=== PATIENT | male | born 1940 | race Caucasian/White ===

== ENCOUNTER 2020-08-15 14:44 | Emergency (ER) | payer MEDICARE, OTHER ==
[2020-08-15 15:08] LABS: BASOPHILS % (AUTO) 0.4 %; EOSINOPHILS # (AUTO) 0.1 10^3/uL (0.0-0.7); EOSINOPHILS % (AUTO) 0.9 %; HCT - HEMATOCRIT 45.9 % (42.0-52.0); HGB - HEMOGLOBIN 16.4 g/dL (14.0-18.0); LYMPHOCYTES # (AUTO) 2.2 10^3/uL (1.5-3.5); LYMPHOCYTES % (AUTO) 26.9 %; MEAN CORPUSCULAR HEMOGLOBIN 31.7 pg (27.0-31.0); MEAN CORPUSCULAR HGB CONC 35.7 g/dL (32.0-36.0); MEAN CORPUSCULAR VOLUME 88.8 fL (80.0-94.0); MEAN PLATELET VOLUME 10.4 fL (7.4-11.4); MONOCYTES # (AUTO) 0.8 10^3/uL (0.0-1.0); MONOCYTES % (AUTO) 9.9 %; NEUTROPHILS # (AUTO) 4.9 10^3/uL (1.5-6.6); NEUTROPHILS % (AUTO) 61.6 %; PLT - PLATELET COUNT 147 10^3/uL (130-450); RED BLOOD COUNT 5.17 10^6/uL (4.70-6.10); RED CELL DISTRIBUTION WIDTH 12.5 % (12.0-15.0)
[2020-08-15 15:17] LABS: BILIRUBIN,URINE NEGATIVE (NEGATIVE); GLUCOSE, URINE (UA) NEGATIVE (NEGATIVE); KETONES,URINE (UA) NEGATIVE (NEGATIVE); LEUKOCYTE ESTERASE, URINE NEGATIVE (NEGATIVE); NITRITE,URINE NEGATIVE (NEGATIVE); OCCULT BLOOD,URINE LARGE (NEGATIVE); PH,URINE 5.5 PH (5.0-7.5); PROTEIN,URINE NEGATIVE (NEGATIVE); UROBILINOGEN,URINE 0.2 (NORMAL) E.U./dL (NORMAL)
[2020-08-15 15:20] LABS: BACTERIA,URINE Rare /HPF (None Seen); CLARITY,URINE CLEAR (CLEAR); SQUAMOUS EPITHELIAL CELL,UR FEW Squamous (<= Few); WBC,URINE 0-3 /HPF (0-3)
--- NOTE | 2020-08-15 15:21 | ED Physician Documentation ---
History of Present Illness - Stated complaint Stated Complaint: LOW BACK PX/MALE - Chief complaint Chief Complaint: Abd Pain - Additonal information Additional information: 79-year-old male presents to the emergency department for evaluation of right mid back pain and flank pain that began a few hours before arrival. He describes it as a constant unrelenting ache. He states he has had similar in the past with nephrolithiasis. However his last episode was about 10 years ago. Denies any history of surgical interventions related to nephro or ureterolithiasis. Said no fevers, nausea vomiting. Denies dysuria or hematuria. Denies chest pain shortness of air. Past medical history includes Parkinson's disorder, hypertension and hyperlipidemia Meds: Carbidopa, levodopa, atorvastatin, hydrochlorothiazide Review of Systems Constitutional: denies: Fever, Chills Eyes: reports: Reviewed and negative Ears: reports: Reviewed and negative Nose: reports: Reviewed and negative Throat: reports: Reviewed and negative Cardiac: reports: Reviewed and negative Respiratory: reports: Reviewed and negative GI: reports: Abdominal Pain. denies: Nausea, Vomiting : denies: Dysuria, Frequency, Hesitancy Skin: reports: Reviewed and negative PD PAST MEDICAL HISTORY - Present Medications Home Medications: Ambulatory Orders Medication Instructions Recorded Confirmed Atorvastatin Calcium 1 tab PO DAILY 08/15/20 08/15/20 Carbidopa/Levodopa/Entacapone 1 tab PO TID 08/15/20 08/15/20 [Carbidopa-Levodopa 100 mg-Enta] HYDROcod/ACETAM 5/325 [[place] 5/325] 1 - 2 tablet PO BID #14 tablet 08/15/20 Omeprazole [PriLOSEC] 1 tab PO DAILY 08/15/20 08/15/20 Tamsulosin [Flomax] 0.4 mg PO DAILY #30 08/15/20 hydroCHLOROthiazide [Hydrodiuril] 1 tab PO DAILY 08/15/20 08/15/20 - Allergies Allergies/Adverse Reactions: Allergies Allergy/AdvReac Type Severity Reaction Status Date / Time No Known Drug Allergies Allergy Verified 08/15/20 14:53 PD ED PE EXPANDED - General General: Alert, No acute distress - Cardiac Cardiac: Regular Rate, Radial strong equal, Pedal strong equal, Cap refill < 2 sec. No: Murmur Present - Respiratory Respiratory: Clear to ausultation apolonia. No: Distress, Labored - Abdomen Abdomen: Normal Bowel sounds, Tender to palpation (Mild right flank tenderness and very low CVA tenderness). No: Rebound, Guarding - Derm Derm: Normal color, Warm and dry. No: Rash - Neuro Neuro: Alert and Oriented X 3, CNII-XII intact, Other (Resting tremor) - GCS Eye Opening: Spontaneous Results - Vitals Vitals: Vital Signs - 24 hr 08/15/20 14:50 Temperature 36.8 C Heart Rate 92 Respiratory 15 Rate Blood Pressure 164/74 H O2 Saturation 99 Oxygen O2 Source Room air - Labs Labs: Laboratory Tests 08/15/20 08/15/20 08/15/20 15:00 15:00 15:12 WBC 8.0 RBC 5.17 Hgb 16.4 Hct 45.9 MCV 88.8 MCH 31.7 H MCHC 35.7 RDW 12.5 Plt Count 147 MPV 10.4 Neut # (Auto) 4.9 Lymph # (Auto) 2.2 Davidson # (Auto) 0.8 Eos # (Auto) 0.1 Baso # (Auto) 0.0 Absolute Nucleated RBC 0.00 Nucleated RBC % 0.0 Sodium 141 Potassium 3.6 Chloride 102 Carbon Dioxide 27 Anion Gap 12.0 BUN 18 Creatinine 1.1 Estimated GFR (MDRD) 64 L Glucose 121 H Calcium 9.3 Total Bilirubin 0.9 AST 19 ALT < 10 L Alkaline Phosphatase 67 Total Protein 7.2 Albumin 4.5 Globulin 2.7 Albumin/Globulin Ratio 1.7 Lipase 29 Urine Color YELLOW Urine Clarity CLEAR Urine pH 5.5 Ur Specific [place] 1.025 Urine Protein NEGATIVE Urine Glucose (UA) NEGATIVE Urine Ketones NEGATIVE Urine Occult Blood LARGE H Urine Nitrite NEGATIVE Urine Bilirubin NEGATIVE Urine Urobilinogen 0.2 (NORMAL) Ur Leukocyte Esterase NEGATIVE Urine RBC 11-25 H Urine WBC 0-3 Ur Squamous Epith Cells FEW Squamous Urine Bacteria Rare Ur Microscopic Review INDICATED Urine Culture Comments NOT INDICATED - Rads (name of study) CT abd/pel Radiology: Final report received (7 mm obstructing stone seen within the right proximal ureter with associated right-sided hydroureter hydronephrosis and perinephric fat stranding. No nonobstructing stones are seen. Moderate amount of stool seen within the colon please correlate with clinical constipation.) PD MEDICAL DECISION MAKING - ED course Complexity details: reviewed results, re-evaluated patient, d/w patient ED course: -year-old male presents emergency department for evaluation of acute right flank pain that began just a few hours prior to arrival. He does have a history of nephrolithiasis. Screening labs show no significant leukocytosis. Preserved renal function. No evidence of infection in his urine. CT of the abdomen does show a 7 mm proximal ureter stone with obstruction hydroureter and hydronephrosis. These findings were discussed with the patient his at the bedside. He will be started on Flomax as well as a limited amount of hydrocodone for severe pain. I recommended a little bit of NSAID medication at home as well for pain control. Patient receives his neurology care at the [facility] and I have advised him to follow-up with urology there as well. Emergent return precautions were discussed for worsening pain, fevers uncontrolled vomiting. I am prescribing a short course of short-acting opioid pain medication for this patient. I have reviewed the patients [employer] and no concerning findings were noted. I have discussed that the opioids are for short term therapy only, and will not be refilled from the ED. Departure - Departure Disposition: Home, Self Care Clinical Impression: Ureteral stone with hydronephrosis Condition: Stable Record reviewed to determine appropriate education?: Yes Follow-Up: Bradley Nelson MD [Primary Care Provider] - [facility] [Provider Group] [facility] [Provider Group] Prescriptions: Tamsulosin [Flomax] 0.4 mg PO DAILY #30 HYDROcod/ACETAM 5/325 [[place] 5/325] 1 - 2 tablet PO BID #14 tablet Comments: Dillon leonardo were seen in the emergency department today for right-sided flank pain. The CT scan shows that you have a 7 mm obstructing stone within the right proximal ureter as well as some swelling of the ureter and the kidney. There is no infection in your urine. It is very important that you contact the urology clinic tomorrow to arrange follow-up to be seen within the next week. I have prescribed a medication called Flomax that can help dilate the ureter to allow the stone to pass. Take this once a day as prescribed. Be careful when walking with it it may make you somewhat dizzy. I have also prescribed a limited amount of hydrocodone for severe pain only. It is okay for you to take 600 mg of ibuprofen with food 2 or 3 times a day for the flank pain. If your pain is not well controlled, you have fevers vomiting worsening symptoms then please return to the ER. You may then need to be transferred to a hospital with urology services. I am prescribing a short course of narcotic pain medication for you. These are potentially dangerous and addictive medications that should be used carefully. These medications may constipate you. Take an [id number] stool softener (docusate) twice daily with plenty of water while taking these medications. If you go 24 hours without a bowel movement, take [id number] miralax, per package instructions. Do not drink or drive while taking these medications. If you received narcotic or sedating medications while in the emergency departm ent, do not drive for 24 hours. Store this medication in a safe, secure place and out of reach of children. It is a violation of federal law to give or sell this medication to another person or to use in a manner other than prescribed. The ED will not refill narcotic prescriptions, including prescriptions lost or stolen. To dispose of unwanted medications: 1. [facility] at [address] in [place] has a medication drop box. They accept prescription medications (in pill form) Sunday through Sunday 9:00 a.m. to 5:00 p.m. 2. [facility] [employer] [facility] accepts prescription medications (in pill form only) for disposal year round. Call for more information. 3. Contact the [facility] for the next [facility] sponsored prescription drug collection event. , [phone], or [phone]; Note that many narcotic pain relievers also contain Tylenol/acetaminophen. Please ensure that your total dose of acetaminophen from all sources does not exceed 3 g (3000 mg) per day.
--- OUTSIDE RECORDS SUMMARY | 2020-08-15 15:24 | EXTERNAL MEDICAL SUMMARY RPT | Continuity of Care Document ---
:1940 Demographics Phone Unavailable Preferred Language Unknown Marital Status Unknown Adventist Affiliation Unknown Race Unknown Ethnic Group Unknown Author Organization [facility] Address [address] [place] [address] Phone Allergies Encounters Medications Problems Results
[2020-08-15] MEDS ORDERED: IOVERSOL 320 100 ML VIAL IVP ONE ×2 (15:25→15:46)
[2020-08-15 15:29] LABS: ALBUMIN 4.5 g/dL (3.2-5.5); ALBUMIN/GLOBULIN RATIO 1.7 (1.0-2.2); ALKALINE PHOSPHATASE 67 IU/L (42-121); ALT ALANINE AMINOTRANSFERASE < 10 IU/L (10-60); AST ASPARTATE AMINOTRANSFERASE 19 IU/L (10-42); BILIRUBIN,TOTAL 0.9 mg/dL (0.2-1.0); BUN - BLOOD UREA NITROGEN 18 mg/dL (6-20); CALCIUM 9.3 mg/dL (8.5-10.3); CARBON DIOXIDE - CO2 27 mmol/L (21-32); CHLORIDE 102 mmol/L (101-111); CREATININE 1.1 mg/dL (0.6-1.2); GFR - MDRD 64 (>89); GLUCOSE 121 mg/dL (70-100); LIPASE 29 U/L (22-51); POTASSIUM 3.6 mmol/L (3.5-5.0); SODIUM 141 mmol/L (135-145); TOTAL PROTEIN 7.2 g/dL (6.7-8.2)
--- NOTE | 2020-08-15 16:22 | CT Report ---
PROCEDURE: Abdomen/Pelvis W INDICATIONS: right low back pain; ? renal colic CONTRAST: IV CONTRAST: Optiray 320 ml: 100 PO CONTRAST: *NO PO CONTRAST TECHNIQUE: After the administration of IV contrast, 5 mm thick sections acquired from the diaphragms to the symp hysis. 5 mm thick coronal and sagittal reformats were acquired. For radiation dose reduction, the f ollowing was used: automated exposure control, adjustment of mA and/or kV according to patient size. COMPARISON: Correlation is made with reports only from prior CT examinations dated 11/08/2011 and 10/27 FINDINGS: Image quality: Excellent. ABDOMEN: Lung bases: Lung bases are clear. Heart size is normal. Solid organs: Liver and spleen are normal in size. Subcentimeter low-density liver lesions are seen. En. Spleen demonstrates normal size and demonstrates no focal lesions An accessory splenule is incid entally noted along the hilum of the primary spleen. Gallbladder demonstrates layering sludge or sm all stones Biliary system is non dilated. Pancreas enhances normally. No adrenal nodules. There is an obstructing stone seen within the right proximal ureter, as on series 3 image 38 and on s eries 6 image 29 that measures up to 7 mm. There is associated moderate right-sided hydroureter and h ydronephrosis. A mild degree of right perinephric fat stranding can be seen. The kidneys demonstrate normal size. No nonobstructing stones are detected. No left-sided hydronephro sis is seen. Peritoneum and bowel: Bowel loops demonstrate normal wall thickness and caliber. No free fluid or a ir. A normal appendix is incidentally noted. A moderate amount of stool can be seen within the colo n. Nodes and vessels: No retroperitoneal or mesenteric adenopathy by size criteria. Aorta and inferior vena cava are normal in size. Atherosclerotic calcification is seen. Miscellaneous: No ventral hernias. PELVIS: Genitourinary: Bladder wall thickness is normal. Miscellaneous: No inguinal hernias or adenopathy. Bones: No suspicious bony lesions. No vertebral body compression fractures. Mild dextroconvex scol iotic curvature is seen. Degenerative changes are seen throughout, which are worst at L2-L3 and L5-S1 . IMPRESSION: 7 mm obstructing stone seen within the right proximal ureter, with associated right-side d hydroureter, hydronephrosis, and perinephric fat stranding. No nonobstructing stones are seen. There is a moderate amount of stool seen within the colon. Please correlate with clinical constipatio n. Incidental note is made of: Presumed liver cysts Layering sludge or small stones seen within the gallbladder Accessory splenule Normal appendix Dextroconvex scoliotic curvature Focal L2-L3 and L5-S1 degenerative change Reviewed by: Micha Bowser MD on 08/15/2020 3:20 PM AKDT Approved by: Micha Bowser MD on 08/15/2020 3:20 PM AKDT Station ID: [id number]
[2020-08-15] MEDS ORDERED: KETOROLAC 30 MG/ML VIAL IVP STA (16:31)
[2020-08-15] MEDS ORDERED: TAMSULOSIN 0.4 MG CAPSULE PO STA (16:33)
[2020-08-15 17:05] VITALS: BP 172/90
== END 2020-08-15 17:05 | disposition home or self-care (01) ==
LOC: ED 14:44
DX: N13.2 Hydronephrosis with renal and ureteral calculous obstruction (principal); I10 Essential (primary) hypertension
CPT/HCPCS: 36415; 74177; 80053; 81001; 83690; 85025; 96374; 99283; 99284; A9270; Q9967; 81003; 87086